=== PATIENT | male | born 1995 | race Hispanic/Latino ===

== ENCOUNTER 2021-12-30 00:43 | Emergency (ER) | payer OTHER ==
[2021-12-30] MEDS ORDERED: LIDOCAINE 1% MPF 2 ML AMPULE ONE (01:11)
[2021-12-30] MEDS ORDERED: LIDOCAINE 1% MPF 5 ML VIAL ONE (01:13)
--- NOTE | 2021-12-30 03:06 | EDPHYS ---
Physician Documentation [facility] Name: Tom Colin Age: 26 yrs Sex: Male : 1995 Arrival Date: 12/30/2021 Time: 00:46 Bed 17 Private MD: ED Physician Molina Rojo HPI: 12/30 23:12 This 26 yrs old Male presents to ER via EMS with complaints of Laceration - kdr Finger. 23:12 The patient or guardian reports a contusion, decreased range of motion, deformity, kdr injury, a laceration, pain, swelling, tenderness. The complaints affect the DIP of left index finger, PIP of left index finger and MCP of left index finger. Context: The problem was sustained at work, resulted from a crush injury, by a heavy object, by industrial equipment. Onset: The symptoms/episode began/occurred suddenly, just prior to arrival. Modifying factors: The symptoms are alleviated by nothing, the symptoms are aggravated by nothing. Associated signs and symptoms: The patient has no apparent associated signs or symptoms. Severity of symptoms: At their worst the symptoms were. The patient has not experienced similar symptoms in the past. The patient has not recently seen a physician. Historical: - Allergies: 01:13 No Known Allergies; fidel - Immunization history:: Last tetanus immunization: up to date. - Social history:: Smoking status: Patient denies any tobacco usage or history of. ROS: 23:12 Constitutional: Negative for fever, chills, and weight loss, Eyes: Negative for injury, kdr pain, redness, and discharge, Neck: Negative for injury, pain, and swelling, Cardiovascular: Negative for chest pain, palpitations, and edema, Respiratory: Negative for shortness of breath, cough, wheezing, and pleuritic chest pain. 23:12 MS/extremity: Positive for injury or acute deformity, decreased range of motion, laceration, pain, swelling, tenderness, of the dorsal aspect of middle phalanx of left index finger and dorsal aspect of proximal phalanx of left index finger. Exam: 23:12 Constitutional: This is a well developed, well nourished patient who is awake, alert, kdr and in no acute distress. Head/Face: Normocephalic, atraumatic. Eyes: Pupils equal round and reactive to light, extra-ocular motions intact. Lids and lashes normal. Conjunctiva and sclera are non-icteric and not injected. Cornea within normal limits. Periorbital areas with no swelling, redness, or edema. 23:12 Musculoskeletal/extremity: Extremities: grossly normal except: noted in the dorsal aspect of middle phalanx of left index finger and dorsal aspect of proximal phalanx of left index finger: decreased ROM, pain, swelling, tenderness. Vital Signs: 01:10 BP 135 / 83; Pulse 69; Resp 18; Temp 97.3; Pulse Ox 100% on R/A; Pain 7/10; fidel 01:15 BP 135 / 83; Pulse 69; Resp 18; Temp 97.3; Pulse Ox 100% on R/A; fidel 03:20 BP 128 / 78; Pulse 68; Resp 16; Temp 97.3; Pulse Ox 100% on R/A; Pain 0/10; fidel Laceration: 02:06 Wound Repair of 3cm ( 1.2in ) subcutaneous laceration to dorsal aspect of middle pm1 phalanx of left index finger. Irregularly shaped.. Distal neuro/vascular/tendon intact. Anesthesia: Digital block administered with 2 mls of Lido/Marcaine. Wound prep: Extensive cleansing with betadine by me, Wound irrigation with saline by me, Wound explored extensively, Copious irrigation. Skin closed with 9 1-0 Prolene using simple sutures and sterile technique. Dressed with Neosporin, 4x4's. Patient tolerated well. MDM: 03:05 Patient medically screened. kdr 23:15 Data reviewed: radiologic studies. Counseling: I had a detailed discussion with the kdr patient and/or guardian regarding: the historical points, exam findings, and any diagnostic results supporting the discharge/admit diagnosis, radiology results, the need for outpatient follow up. 12/30 01:20 Order name: Hand Left 3 View XRAY lp1 Administered Medications: No medications were administered Disposition: 03:04 Co-signature as Attending Physician, Molina Rojo MD I agree with the assessment and kdr plan of care. Disposition Summary: 12/30/21 03:05 Discharge Ordered Location: Home kdr Problem: new kdr Symptoms: have improved kdr Condition: Stable kdr Diagnosis - Crushing injury of left hand, initial encounter - index finger kdr Followup: kdr - With: Private Physician - When: 2 - 3 days - Reason: If symptoms return, Further diagnostic work-up, Recheck today's complaints, Continuance of care, Re-evaluation by your physician Discharge Instructions: - Discharge Summary Sheet kdr - Laceration Care, Adult, [id number] kdr - Crush Injury of the Hand, [id number] kdr Forms: - Medication Reconciliation Form kdr - Thank You Letter kdr - Antibiotic Education kdr - Prescription Opioid Use kdr Prescriptions: - Cephalexin 500 mg Oral Capsule - take 1 capsule by ORAL route every 6 hours for 10 days; 40 capsule; Refills: 0, kdr Product Selection Permitted - Tramadol 50 mg Oral Tablet - take 1 tablet by ORAL route every 8 hours as needed; 12 tablet; Refills: 0, kdr Product Selection Permitted Signatures: Dispatcher [employer] EDMS Molina Rojo MD MD kdr Marinas, Patrick, NP ADMIN DIR pm1 Tanesha Jarrell RN RN fidel Corrections: (The following items were deleted from the chart) 01:01 00:53 Hand Left 3 View+RAD.RAD.BRZ ordered. EDMA EDMS
--- NOTE | 2021-12-30 03:06 | ER ---
Nurse's Notes [facility] Name: Tom Colin Age: 26 yrs Sex: Male : 1995 Arrival Date: 12/30/2021 Time: 00:46 Bed 17 Private MD: Diagnosis: Crushing injury of left hand, initial encounter-index finger Presentation: 12/30 01:10 Chief complaint: Patient states: lac to left index finger. Coronavirus screen: Vaccine fidel status: Patient reports being unvaccinated. Ebola Screen: Patient negative for fever greater than or equal to 101.5 degrees Fahrenheit, and additional compatible Ebola Virus Disease symptoms Patient denies exposure to infectious person. Patient denies travel to an Ebola-affected area in the 21 days before illness onset. Initial Sepsis Screen: Does the patient meet any 2 criteria? No. Patient's initial sepsis screen is negative. Does the patient have a suspected source of infection? No. Patient's initial sepsis screen is negative. Risk Assessment: Do you want to hurt yourself or someone else? Patient reports no desire to harm self or others. Onset of symptoms was December 30, 2021. 01:10 Method Of Arrival: EMS: [facility] 01:10 Acuity: LÁZARO 3 fidel Triage Assessment: 01:14 General: Appears in no apparent distress. Behavior is calm, cooperative. Pain: fidel Complains of pain in left index finger. Historical: - Allergies: 01:13 No Known Allergies; fidel - Immunization history:: Last tetanus immunization: up to date. - Social history:: Smoking status: Patient denies any tobacco usage or history of. Screenin:16 Abuse screen: Denies threats or abuse. Denies injuries from another. Nutritional fidel screening: No deficits noted. Tuberculosis screening: No symptoms or risk factors identified. Fall Risk None identified. Assessment: 01:14 Reassessment: Patient appears in no apparent distress at this time. No changes from fidel previously documented assessment. 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 02:19 Reassessment: The provider has closed the wound. fidel Vital Signs: 01:10 BP 135 / 83; Pulse 69; Resp 18; Temp 97.3; Pulse Ox 100% on R/A; Pain 7/10; fidel 01:15 BP 135 / 83; Pulse 69; Resp 18; Temp 97.3; Pulse Ox 100% on R/A; fidel 03:20 BP 128 / 78; Pulse 68; Resp 16; Temp 97.3; Pulse Ox 100% on R/A; Pain 0/10; fidel ED Course: 00:46 Patient arrived in ED. 00:52 Molina Rojo MD is Attending Physician. kdr 01:10 Tanesha Jarrell, RN is Primary Nurse. fidel 01:13 Triage completed. fidel 01:16 Patient has correct armband on for positive identification. Bed in low position. Call fidel light in reach. Side rails up X 1. Adult w/ patient. 01:30 No provider procedures requiring assistance completed. fidel 01:31 Patient NS with a small amount of Iodine to soak his hand. fidel 01:36 Hand Left 3 View XRAY In Process Unspecified. EDMS 03:20 Patient did not have IV access during this emergency room visit. fidel Administered Medications: No medications were administered Medication: 01:32 VIS not applicable for this client. fidel Outcome: 01:31 Condition: stable fidel 03:05 Discharge ordered by . 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 medication usage, Demonstrated understanding of instructions, follow-up care, medications, Prescriptions given X 2. 03:21 Patient left the ED. fidel Signatures: Dispatcher [employer] EDIN Molina Rojo MD MD kdr Marsh, Wendy Tanesha Jarrell, RN RN fidel
[2021-12-30 03:27] VITALS: TEMP 97.3; O2SAT 100
[2021-12-30 03:32] VITALS: BP 128/78
--- NOTE | 2021-12-30 17:58 | RAD REPORT ---
EXAM DESCRIPTION: RAD - Hand Left 3 View - 12/30/2021 1:34 am CLINICAL HISTORY: 26 years, Male, PAIN COMPARISON: None FINDINGS: 3 X-ray views of the left hand (Frontal, lateral and oblique views) were performed. No acute bony injuries were demonstrated. No gross articular or soft tissue abnormality is identifi ed. There are no gross intraosseous lesions. No periosteal reaction were seen. IMPRESSION: No acute bony injuries were demonstrated. Electronically signed by: Armaan Bender MD 12/30/2021 2:06 AM CDT Due to temporary technical issues with the PACS/Fluency reporting system, reports are being signed by the in house radiologists without review as a courtesy to insure prompt reporting. The interpreting radiologist is fully responsible for the content of the report.
== END 2021-12-30 03:21 | disposition home or self-care (01) ==
LOC: ER 00:43
PROC: 0JQK0ZZ Repair Left Hand Subcutaneous Tissue and Fascia, Open Approach (ICD-10-PCS; principal; 2021-12-30)
DX: S61.211A Laceration without foreign body of left index finger without damage to nail, initial encounter (principal); W31.89XA Contact with other specified machinery, initial encounter; Y92.89 Other specified places as the place of occurrence of the external cause; Y99.8 Other external cause status
CPT/HCPCS: 99283